=== PATIENT | female | born 1975 | race African-American/Black ===

== ENCOUNTER 2017-12-29 12:43 | Emergency (ER) | payer SELFPAY ==
[~2017-12-29] VITALS: Ht 167.6 cm; Wt 107.0 kg
[2017-12-29 13:37] VITALS: BP 178/102; PULSE 64; RESP 20; TEMP 98.7; O2SAT 98
[2017-12-29 15:04] LABS: AUTOMATED NEUTROPHIL # 3.1 TH/MM3 (1.8-7.7); BASOPHIL % 0.6 % (0.0-2.0); EOSINOPHIL # 0.1 TH/MM3 (0-0.4); EOSINOPHIL % 1.7 % (0.0-4.0); HEMATOCRIT 43.9 % (35.0-46.0); HEMOGLOBIN 14.6 GM/DL (11.6-15.3); LYMPH % 36.8 % (9.0-44.0); LYMPHOCYTE # 2.2 TH/MM3 (1.0-4.8); MEAN CELL VOLUME 86.2 FL (80.0-100.0); MEAN CORPUSCULAR HEMOGLOBIN 28.6 PG (27.0-34.0); MEAN CORPUSCULAR HGB CONC 33.2 % (32.0-36.0); MEAN PLATELET VOLUME 8.9 FL (7.0-11.0); MONO % 8.8 % (0.0-8.0); MONOCYTE # 0.5 TH/MM3 (0-0.9); NEUT % 52.1 % (16.0-70.0); PLATELET COUNT 339 TH/MM3 (150-450); RED BLOOD COUNT 5.09 MIL/MM3 (4.00-5.30); RED CELL DISTRIBUTION WIDTH 14.7 % (11.6-17.2); WHITE BLOOD COUNT 5.9 TH/MM3 (4.0-11.0)
[2017-12-29 15:15] LABS: BLOOD UREA NITROGEN 12 MG/DL (7-18); CALCIUM 9.1 MG/DL (8.5-10.1); CHLORIDE 107 MEQ/L (98-107); CREATININE 0.94 MG/DL (0.50-1.00); GLOMERULAR FILTRATION RATE 78 ML/MIN (>89); GLUCOSE,RANDOM 98 MG/DL (74-106); SODIUM (NA) 139 MEQ/L (136-145)
[2017-12-29 15:18] LABS: TROPONIN I LESS THAN 0.02 NG/ML (0.02-0.05)
[2017-12-29 17:00] VITALS: BP 149/96; PULSE 90; RESP 18; O2SAT 98
[2017-12-29] MEDS ORDERED: HYDR25TA5 PO ×2 (17:02→17:27)
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
--- NOTE | 2017-12-30 15:46 | EKG ---
Date Performed: 12/29/2017 Time Performed: 14:17:19 PTAGE: 42 years EKG: Sinus rhythm NONSPECIFIC T-WAVE ABNORMALITY BORDERLINE ECG Since the PREVIOUS TRACING , no significant change noted PREVIOUS TRACIN07/06/2004 10.44 DOCTOR: Reggie Mistry Interpretating Date/Time 12/30/2017 15:42:21
== END 2017-12-29 17:54 | disposition home or self-care (01) ==
LOC: NEPD 12:43
DX: I10 Essential (primary) hypertension (principal); G47.00 Insomnia, unspecified; G89.29 Other chronic pain; R94.31 Abnormal electrocardiogram [ECG] [EKG]; Z76.0 Encounter for issue of repeat prescription; Z86.73 Personal history of transient ischemic attack (TIA), and cerebral infarction without residual deficits
CPT/HCPCS: 80048; 82550; 82552; 84484; 85025; 93005; 99284